=== PATIENT | female | born 1975 | race Caucasian/White ===

== ENCOUNTER 2020-01-01 15:23 | Observation (INO) ==
[2020-01-01] MEDS ORDERED: NS 1,000 ML IV PRN (15:36)
--- NOTE | 2020-01-01 16:08 | Diag Imaging Result Doc PS360 ---
EXAM: CT HEAD W/O CONTRAST 01/01/2020 HISTORY: stroke like symptoms TECHNIQUE: This exam was performed using automated exposure control, adjustment of mA or kV according to patient size, and/or use of iterative reconstruction technique. COMMENT: There is no evidence of mass effect, bleed, or abnormal extra-axial fluid collection. The calvarium is intact. IMPRESSION: No evidence of acute disease. Electronically signed by Juan Manuel Roy 01/01/2020 4:06 PM
--- NOTE | 2020-01-01 16:09 | Diag Imaging Result Doc PS360 ---
EXAM: CHEST-PORTABLE 01/01/2020 HISTORY: stroke like symptoms TECHNIQUE: AP upright at 1605 COMMENT: There is no evidence of acute cardiac or pulmonary disease. There are no previous studies. IMPRESSION: No evidence of acute disease. Electronically signed by Juan Manuel Roy 01/01/2020 4:07 PM
[2020-01-01] MEDS ORDERED: FIORICET PO ONE (16:33)
[2020-01-01 16:38] LABS: BASO# 0.04 X1000 (0.0-0.2); BASO% 0.5 % (0.0-0.8); EOS% 1.3 % (0.0-10.0); HEMATOCRIT 44.2 % (37.0-47.0); HEMOGLOBIN 14.3 g/dL (12.0-16.0); IMM GRAN# 0.02 X1000 (0.0-0.04); IMM GRAN% 0.3 % (0.0-0.5); LYMPH# 1.99 X1000 (1.2-3.4); LYMPH% 25.8 % (20.5-51.1); MCH 30.1 PG (27-31); MCHC 32.4 g/dL (33-37); MCV 93.1 FL (81-99); MONO# 0.63 X1000 (0.11-0.59); MONO% 8.2 % (1.7-9.3); MPV 10.7 FL (7.4-10.4); NEUT# 4.92 X1000 (1.4-6.5); NEUT% 63.9 % (42.2-75.2); PLT 243 X1000 (130-400); RBC 4.75 XMIL (4.2-5.4)
--- NOTE | 2020-01-01 16:45 | EKG Report ---
Test Performed on : 01/01/2020 4:13:28 PM Test Reason : Stroke like symptoms Blood Pressure : / mmHG Vent. Rate : 083 BPM Atrial Rate : 083 BPM P-R Int : 120 ms QRS Dur : 092 ms QT Int : 378 ms P-R-T Axes : 062 047 039 degrees QTc Int : 444 ms Normal sinus rhythm. Normal ECG When compared with ECG of 25-OCT-2019 03:23, (Unconfirmed) No significant change was found Unconfirmed Result
[2020-01-01 17:46] LABS: URINE SOURCE CLEAN CATCH
[2020-01-01 17:50] LABS: BILIRUBIN URINE NEGATIVE (NEGATIVE); BLOOD URINE NEGATIVE (NEGATIVE); COLOR YELLOW; GLUCOSE URINE NEGATIVE (NEGATIVE); KETONE URINE NEGATIVE (NEGATIVE); LEUKOCYTES URINE NEGATIVE (NEGATIVE); NITRITE URINE NEGATIVE (NEGATIVE); PROTEIN URINE NEGATIVE (NEGATIVE); SP GRAVITY URINE 1.014; TURBIDITY URINE CLEAR (CLEAR); UR EPITHELIAL CELLS <10 /HPF (<10); URINE BACTERIA NEGATIVE /HPF; URINE RBC <10 /HPF (<10); URINE WBC <10 /HPF (<10); UROBILINOGEN URINE NORMAL (NORMAL)
[2020-01-01 18:05] LABS: UR AMPHETAMINES QUAL NONE DETECTED (NONE DETECT); UR BARBITUATES QUAL NONE DETECTED (NONE DETECT); UR BENZODIAZEPIN QUAL NONE DETECTED (NONE DETECT); UR CANNABINOIDS QUAL NONE DETECTED (NONE DETECT); UR COCAINE QUAL NONE DETECTED (NONE DETECT); UR METHADONE QUAL NONE DETECTED (NONE DETECT); UR OPIATES QUAL NONE DETECTED (NONE DETECT); UR OXYCODONE QUAL NONE DETECTED (NONE DETECT); UR PCP QUAL NONE DETECTED (NONE DETECT)
[2020-01-01 18:11] LABS: ALB/GLOB RATIO 1.6; ALBUMIN 4.3 g/dL (3.5-5.0); CALCIUM 8.9 mg/dL (8.8-10.2); POTASSIUM 4.1 mmol/L (3.5-5.1); TOTAL BILIRUBIN 0.37 mg/dL (0.20-1.00)
[2020-01-01 18:14] LABS: INR 0.97
[2020-01-01 18:15] LABS: PTT 31.3 Seconds (22.3-41.8)
--- NOTE | 2020-01-01 18:50 | PROVIDER DOCUMENTATION ---
This chart was entered by Itzel Spencer Scribe, acting as scribe for Mar Trejo MD. HPI-Headache - General Chief Complaint: Stroke-Like Symptoms Stated Complaint: FACIAL DROOPING Time Seen by Provider: 01/01/20 15:32 Source: patient Allergies/Adverse Reactions: Patient Allergies Allergy/AdvReac Type Severity Reaction Status Date / Time Gadolinium-Containing Allergy HIVES Verified 01/01/20 15:35 Contrast Medi Home Medications: Home Medication List Medication Instructions Recorded Confirmed Last Taken Type Levothyroxine Sodium [Synthroid] 88 mcg PO QAM 10/25/19 01/01/20 01/01/20 07:00 History - History of Present Illness-Headache Nature of Presenting Problem: 44 yof presents to the ed with c/o QUACH 3 weeks and had MRI done yesterday that showed herniated disk c4 c5. pt sts while driving [employer] she became flushed and looked to her she had left facial droop. pt drove to ed and on exam pt has no facial droop. pt speech is clear and other then QUACH pt is back to baseline Headache Location: reports: global Quality of Pain: reports: throbbing Severity: reports: severe Onset/Duration: reports: other (3 weeks) Timing: reports: still present, intermittent, getting worse Headache Context: reports: nothing Headache History: reports: frequent headaches Any recent trauma/injury?: reports: none Headache severity at the maximum: worst of life Preceding Symptoms: reports: none Headache Exacerbated by:: reports: light Modifying Factors: improves with: nothing Associated Symptoms: reports: headache. denies: decreased ability to walk or stand, dizziness, confusion, neck/back pain, nausea, slurred speech, vomiting, vision changes Similar Symptoms Previously?: No Recently seen or treated by another doctor?: No Review of Systems - Adult - REVIEW OF SYSTEMS - ADULT Constitutional: denies: chills, fever Eyes: denies: blurred vision, double vision Ears, Nose, Mouth & Throat: reports: no symptoms reported Cardiovascular: denies: chest pain, palpitations Respiratory: denies: cough, shortness of breath, wheezing Gastrointestinal: denies: diarrhea, nausea, vomiting Genitourinary: reports: no symptoms reported Musculoskeletal: reports: no symptoms reported Integumentary: reports: see HPI, other (flushed) Neurological: reports: see HPI, headache/migraines, other (pt sts facial droop). denies: ataxia, dizziness/vertigo, seizure, slurred speech, syncope, tremors Psychiatric: reports: no symptoms reported Endocrine: reports: no symptoms reported Hematologic/Lymphatic: reports: no symptoms reported Allergic/Immunologic: reports: no symptoms reported All Other Systems: Reviewed and Negative Past History - Adult - PAST MEDICAL HISTORY-ADULT Review of Records: reports: Old Records Reviewed, Nursing Assessment Review, Medications Reviewed, Social history reviewed & non-contributory. Major Childhood Illnesses: reports: denies history Cardiovascular: reports: denies history Respiratory: reports: denies history Gastrointestinal: reports: denies history Obstetrical/Gynecological: reports: denies history Genitourinary: reports: denies history Musculoskeletal: reports: denies history Neurological: reports: denies history Endocrine/Immune: reports: thyroid disorder Other Conditions: reports: denies history - PRIOR SURGERIES/PROCEDURES Surgical/Procedure History: reports: reviewed, not pertinent - IMMUNIZATION STATUS Childhood Immunizations: See Nurse Assessment Flu Vaccine: See Nurse Assessment - FAMILY HISTORY Family History: reviewed, not pertinent - SOCIAL HISTORY Smoking: denies Substance Use: denies Living Situation: family Physical Exam- Neurological - Physical Exam-Neuro Initial Vital Signs Reviewed: Yes General Appearance: appears well, alert, mild distress Eye Exam: bilateral eye: normal inspection, PERRL, EOMI HENMT: moist mucous membranes, normal ENT inspection, other (c/o QUACH) Head Injury: no evidence of injury Neck: non-tender, full range of motion, supple, normal inspection Respiratory: chest non-tender, lungs clear, normal breath sounds Cardiovascular: normal peripheral pulses, regular rate, rhythm Abdominal Exam: normal bowel sounds, non tender, soft Lymphatic: no adenopathy Extremity: normal range of motion, non-tender, normal gait, normal inspection, no pedal edema, no calf tenderness, normal capillary refill environmental geologist Exam: normal hearing, normal speech, PERRL. negative: facial droop, facial paresthesias, facial weakness Coordination/Gait: normal finger to nose, normal gait Motor/Sensory: no motor deficit, no sensory deficit, no pronator drift Neurologic: environmental geologist II-XII nml as tested Integumentary: normal color, normal turgor, warm/dry Psych/Mental Status: normal mood/affect, normal thought content, normal thought process, oriented x 3 - Glascow Coma Scale Best Eye Response: (4) open spontaneously Best Verbal Response: (5) oriented Best Motor Response: (6) obeys commands Total Glascow Score: 15 Progress - PLAN OF CARE/RESULTS Result Diagrams: 01/01/20 16:29 01/01/20 16:29 - REASSESSMENT Reassessment #1 Time Reassessed: 16:34 Status: improving (pt has no facial droop still has QUACH) - EKG 1 Time of EKG reading by physician:: 16:13 EKG Read and Signed by:: Mar Trejo EKG Interpretation (*Must complete 3 of following elements*): Normal Rate: 83 Rhythm: nsr [place]: normal QRS: normal [place] Interval: normal ST Wave: normal - XRAY 1 XRAY: Bilateral XRAY Study: Chest Impression: See EMR Report (EXAM: CHEST-PORTABLE 01/01/2020 HISTORY: stroke like symptoms TECHNIQUE: AP upright at 1605 COMMENT: There is no evidence of acute cardiac or pulmonary disease. There are no previous studies. IMPRESSION: No evidence of acute disease. Electronically signed by Juan Manuel Roy 01/01/2020 4:07 PM 01/01/20 1607 Interpreting Physician: Juan Manuel Roy MD Dictated Date/Time: 01/01/20 1607 cc: Mar Trejo MD; Siobhan Helm MD) - CT/MRI 1 CT Study: Head Impression: See EMR Report (EXAM: CT HEAD W/O CONTRAST 01/01/2020 HISTORY: stroke like symptoms TECHNIQUE: This exam was performed using automated exposure control, adjustment of mA or kV according to patient size, and/or use of iterative reconstruction technique. COMMENT: There is no evidence of mass effect, bleed, or abnormal extra-axial fluid collection. The calvarium is intact. IMPRESSION: No evidence of acute disease. Electronically signed by Juan Manuel Roy 01/01/2020 4:06 PM 01/01/20 1606 Interpreting Physician: Juan Manuel Roy MD Dictated Date/Time: 01/01/20 1605 cc: Mar Trejo MD; Siobhan Helm MD) Departure - Departure Date of Disposition Decision: 01/01/20 Time of Disposition Decision: 18:49 DIAGNOSIS: Facial droop Disposition: ADMITTED INPATIENT 09 Certified Medical Emergency: Emergent Condition: Good - Critical Care Note This patient required my direct & personal management of CC.: No Attestation - Physician/ LEELEE Attestation Patient care was provided by Advanced Practice Provider:: No The physician spent face to face time with patient:: Yes Advanced Practice Provider documentation review:: Supervising physician onsite and consulted in the evaluation and care of this patient. The physician did have a face to face encounter with the patient. This chart was documented by the indicated scribe, (Itzel Spencer Scribe) and accurately reflects the services I performed and decisions made by me, Mar Trejo MD, as attested by the provider's signature.
[2020-01-01] MEDS ORDERED: TYLENOL PO PRN (19:35)
--- NOTE | 2020-01-02 02:24 | HISTORY AND PHYSICAL ---
CHIEF COMPLAINT: Left-sided facial droop which lasted several hours. HISTORY OF PRESENT ILLNESS: Mrs Ghotra is 44-year-old lady with past medical history of hypothyroidism, who has been under a lot of stress recently because of social issues, comes in with chief complaint of left facial droop. The patient was driving and had sudden episode of flushing and when she looked herself in the mirror, she found that she had a left-sided facial droop. She took some pictures of herself and came to the emergency room. In the emergency room, she was found to have temperature of 98.3 degrees, pulse of 73, respiratory rate 14, blood pressure 147/100, saturating 99% on room air. On head CT imaging, she did not have any acute intracranial pathology. However, patient felt that her facial droop had started becoming better, but she was concerned about TIA, so the hospitalist team was consulted for further management. At the time of my evaluation, the patient and her are at bedside and, according to , when he entered the room, he did not notice any obvious facial droop. However, when the patient explained to him, he probably saw some drooping on the left side. The patient is currently feeling better. She denies any chest pain, shortness of breath, cough, nausea, vomiting, abdominal pain, diarrhea or constipation. She denies any numbness, tingling, speech abnormality, dysarthria, dizziness, or weakness of any particular part of the body. She denies any recent upper respiratory infection. She denies prior such episode. Recently, she has been under a lot of stress. She has been having neck pain since last 3 weeks, for which an MRI of the neck was performed which had detected a herniated disk. However, I do not have that MRI available. REVIEW OF SYSTEMS: Positive for headache and neck pain. Negative for chest pain, shortness of breath. Negative for nausea, vomiting. Negative for burning urination, micturition, diarrhea, constipation. Negative for cough. Negative for any weakness or numbness. PAST MEDICAL HISTORY: 1. Hyperhidrosis. 2. Hypothyroidism. PAST SURGICAL HISTORY: Sympathectomy for hyperhidrosis. ALLERGIES: Gadolinium containing contrast media. CURRENT MEDICATION: Levothyroxine 88 mcg daily. FAMILY HISTORY: Father of lymphoma at 59. Sister had osteosarcoma. SOCIAL HISTORY: Mrs Ghotra is , lives with her . Has 4 children, one of the children has epilepsy. Denies any smoking, alcohol or recreational substance use. VITALS: Currently temperature of 98.3 degrees, pulse 92, respiratory 20, blood pressure 173/120, saturating 98% room air. PHYSICAL EXAMINATION: GENERAL: Not in acute distress. HEENT: Oral cavity is moist. LUNGS: Air entry equal bilaterally. No wheeze or crackles. CARDIOVASCULAR: No murmur, rub, or gallop. ABDOMEN: Soft, nontender. EXTREMITIES: No lower extremity edema. NEUROLOGIC: She is alert and oriented x3. Cranial nerves: No obvious facial droop. Tongue appears midline. Extraocular movements intact bilaterally. Visual acuity normal on confrontation. Pupils are bilaterally equal reacting to light. Facial sensations are intact. Speech is normal. She is able to shrug both shoulders equally. Hearing appears normal. Sensations: Intact both sides of face, upper extremities and lower extremities. Motor: Power is 5/5 on shoulder shrug, elbow, wrist, hip, knee and ankle joints. Reflexes are 2+. She has not noticed any gait abnormality, though I did not check her gait. [id number] testing is equal and normal bilaterally. Babinski has plantar flexion. LAB: WBC 7.7, hemoglobin 14.3, platelets 243,000. BUN is 19, creatinine 1. Microbiology, no data. IMAGING: Chest x-ray on presentation did not have any evidence of acute disease. Head CT on presentation did not have evidence of mass effect, bleed or abnormal extra-axial fluid collection. Electrocardiogram has normal sinus rhythm. ASSESSMENT AND PLAN: 1. Reported left facial droop: on my evaluation, though I could not see it and there was no objective evidence of focal abnormality. Differential includes transient ischemic attack, anxiety, bells' palsy versus others. I explained to the patient that considering no focal neurological deficit, my suspicion for TIA was extremely low. Also, she did not have any known risk factors for it. However, she was still concerned and wanted to get an MRI of the brain done. I had a discussion about this with her at bedside as well. Eventually, I decided to admit her under observation to get an MRI of the brain done tomorrow morning. I will also consult Neurology. I will follow up with lipid panel and hemoglobin A1c. I would allow permissive hypertension. 2. Neck pain and reported history of cervical disk herniation. I do not have any MRI of neck available. She should have outpatient followup. DISPOSITION: Monitor patient on telemetry floor. Plan of care discussed with her and her , their questions have been answered. cc: Kem Penn MD MTDD
[2020-01-02] MEDS ORDERED: SYNTHROID PO SCH (07:00)
[2020-01-02 08:15] VITALS: BP 139/87
[2020-01-02 08:50] LABS: HEMOGLOBIN A1C 5.2 % (4.8-6.0)
[2020-01-02 09:09] LABS: CHOLESTEROL 206 mg/dL (0-200); HDL 68 mg/dL (45-65); LDL 119 mg/dL; TRIGLYCERIDES 97 mg/dL (35-135); VLDL 19 mg/dL
--- NOTE | 2020-01-02 09:40 | Diag Imaging Result Doc PS360 ---
MRI BRAIN W/O CONTRAST - 01/01/2020 INDICATION: Evaluate for right hemispheric lesion. COMPARISON: Head CT 01/01/2020 FINDINGS: There is no area of restricted diffusion. The ventricles and sulci are normal in size and contour. No intracranial mass or hemorrhage. Midline structures including the optic chiasm and pituitary are normal. IMPRESSION: Negative exam. Electronically signed by Panchito Howard 01/02/2020 9:37 AM
--- NOTE | 2020-01-02 15:40 | NEUROLOGY CONSULTATION ---
DATE: 01/02/2020 Ms. Ghotra is 44 years old and she reports noticing left facial drooping while driving yesterday. She reports a background of personal stress and having headaches most of the last 3 weeks. Headache has been mostly posterior but also global and bilateral forehead and temporal pressure. There is not history of head, neck, face injury. While driving yesterday, she noticed her face appeared flushed and the left face appeared drooped. She took some photographs. There was not change in speech, vision, arm strength or leg strength. She drove herself to the hospital and walked unassisted into the emergency department. She reports left facial droop has improved overnight but has not resolved. She has not had facial palsy before. She has not had Naranjo's palsy, stroke, other neurologic event. She reports diagnosis of herniated disk in the cervical spine based on outside MRI, which I have not seen. She has had chiropractic manipulation and massage. She reports having occasional "borderline" blood pressure but she has never treated blood pressure. She has been taking thyroid medicine chronically with no recent dose change. She does not have any other past medical history. She does not take any other medications. Workup here includes lab showing unremarkable chemistry. Total cholesterol was 206 with HDL 68 and other fractions within normal range. Urine drug screen was all negative. Brain MRI without contrast is unremarkable. She has been afebrile. Heart rate has ranged 60s to 90s. Initial systolic blood pressures were 140s-170s. Today, systolic blood pressures have been 110s-130s. On exam, Ms. Ghotra is awake, alert, attentive and appropriate. Speech is not dysarthric. Language function is intact on brief bedside testing. Memory is good. She is oriented. Head and neck are unremarkable. She has full visual mejia. Extraocular movements are full. Pupils react to light. Facial sensation is intact to pinprick and light touch testing. Corneal reflex is brisk bilaterally, equal on the left and right when each cornea is touched. She has very slight asymmetry in the face but good motility bilaterally. The left nasolabial fold is slightly less prominent than the right. The left palpebra fissure is slightly narrower than the right. Forehead wrinkling is equal. Hearing is good tested by voice and finger rub. Shoulder shrug is good bilaterally. Strength is normal in the arms and legs. She did well on [id number] testing bilaterally. Gait is normal. Heel-to-toe tandem walking is normal. Reflexes are 2+ at the knees and wrists symmetrically. IMPRESSION: 1. Minimal facial asymmetry. I am not certain there is a definite neurologic deficit. She reports the appearance of her face is changed from baseline. We discussed possible explanations for lower motor neuron facial palsy including statistically most likely Naranjo's palsy, 7th nerve compression, brainstem ischemic event, migraine. In light of her stable course with slight improvement and minimal, if any, deficit, I do not think we have to do anything urgently now. We discussed possibility that facial palsy might progress over the next few days and become more typical of Naranjo's palsy. In that case, we might consider starting a course of antiviral medicine and possibly steroids. If her facial appearance does not worsen, I do not think any intervention will be necessary. I told her that we might simply have to accept puzzlement as to the exact etiology and be pleased if she has no further problems. 2. Blood pressures have been elevated here. I encouraged her to be aggressive with keeping track of blood pressure and to keep appointments with her primary clinic. 3. Recent headache which appears to be tension-type, probably associated with the personal stress she reports. If headache persists with normal blood pressure, we might treat that more specifically. Negative imaging is reassuring and I do not think we need further workup now for headache. Thanks for asking Neurology to see Ms. Ghotra. I agree with plans for her discharge today. cc: MD MARY Isidro III
--- NOTE | 2020-01-03 00:22 | DISCHARGE SUMMARY ---
ADMISSION DATE: 01/01/2020 DISCHARGE DATE: 01/02/2020 DISCHARGE DISPOSITION: Home. DISCHARGE CONDITION: Hemodynamically stable. She does not have any more facial droop. DISCHARGE DIAGNOSIS: Likely transient ischemic attack versus Naranjo's palsy versus anxiety. OTHER DIAGNOSES: 1. History of hyperhidrosis, status post sympathectomy. 2. History of neck pain since 3 weeks. DISCHARGE MEDICATIONS: Levothyroxine 88 mcg in the morning time for hypothyroidism. VITALS: At the time of discharge temperature 98 degrees, pulse 90, respiratory 18, blood pressure 139/87 saturating 97% on room air. PHYSICAL EXAMINATION: Not in acute distress. Oral cavity is moist. Air entry bilaterally equal. No wheeze or crackles. S1, S2 normal. No murmur, rub, or gallop. Abdomen: Soft, nontender. Extremity: No lower extremity edema. She is alert and oriented x3. She does not have any ptosis, facial droop. Sensation intact both sides of midline on the face, upper and lower extremity. Her speech is normal. Tongue was midline. Her power was 5 in 5 upper and lower extremity with intact reflexes on admission. LABORATORY DATA: At admission and discharge WBC 7.7, hemoglobin 14.3, platelets 243,000. INR 0.9, BUN 19, creatinine 1. Hemoglobin A1c 5.2, total cholesterol of 206, and she was advised lifestyle modification. Microbiology, no data. IMAGING: During hospital admission, chest x-ray on presentation did not have any acute evidence of any disease. Head CT did not have any evidence of acute disease. Brain MRI on January 01 did not have any acute pathology. Electrocardiogram on presentation had normal sinus rhythm. HOSPITAL COURSE SUMMARY: Ms. Ghotra is a 44-year-old lady with past medical history of hypothyroidism, who has been under a lot of stress recently because of social issues, came in with chief complaint of left facial droop. The patient was driving and had sudden episode of flushing and when she looked at herself in the mirror, she found that she had left-sided facial droop. She took some photos of herself and came to the emergency room. In the emergency room, she was found to have temperature of 98.3 degrees, pulse 73, respiratory 14, blood pressure 147/100. She was saturating 99% room air. Head CT was unremarkable. However, patient felt that her facial droop was still present, though it has started getting better and she was concerned about TIA and was requesting MR imaging, so the hospitalist team was consulted for further management. She was admitted overnight and MRI was performed which did not have any intracranial pathology. Neurology team was also consulted. Their formal recommendation is pending, but according to verbal report given to me, neurologist was of opinion that it could have been an episode of TIA or a facial droop or it could also have been just an episode of anxiety. The patient was advised to have follow up with her regular physician. The patient's was at bedside. Plan of care discussed with both of them regarding her hypercholesterolemia hyper question mentioned. They were advised to work on lifestyle modification including regular physical activity, weight reduction, eating green leafy vegetables. TIME SPENT: 20 minutes were spent in discharging this patient. cc: Kem Penn MD
== END 2020-01-02 12:00 | disposition home or self-care (01) ==
LOC: ED 15:23 → 3N 15:23
PROVIDERS: ATTEND Internal Medicine